=== PATIENT | male | born 1960 | race African-American/Black ===

== ENCOUNTER 2016-12-24 16:38 | Observation (INO) ==
[2016-12-24] MEDS ORDERED: ASPIRIN PO STA (17:02)
[2016-12-24] MEDS ORDERED: LABETALOL IV ONE ×2 (17:02→17:43)
[2016-12-24 17:14] LABS: MANUAL DIFF NEEDED? NO
[2016-12-24 17:15] LABS: BASO% 0.5 % (0.0-0.8); EOS# 0.03 X1000 (0.0-0.7); EOS% 0.4 % (0.0-10.0); HEMATOCRIT 40.5 % (42.0-52.0); IMM GRAN# 0.01 X1000 (0.0-0.04); IMM GRAN% 0.1 % (0.0-0.5); LYMPH% 12.7 % (20.5-51.1); MCH 32.9 PG (27-31); MCHC 34.6 g/dL (33-37); MCV 95.3 FL (81-99); MONO# 0.51 X1000 (0.11-0.59); MONO% 6.5 % (1.7-9.3); MPV 12.3 FL (7.4-10.4); NEUT% 79.8 % (42.2-75.2); PLT 224 X1000 (130-400); RBC 4.25 XMIL (4.7-6.1)
[2016-12-24 17:36] LABS: INR 0.99 (0.86-1.15); PROTIME 13.4 Seconds (12.1-15.5); PTT PL 29.3 Seconds (22.6-43.9)
[2016-12-24 17:40] LABS: AGAP 21; ALBUMIN 5.1 g/dL (3.5-5.0); ALKALINE PHOSPHATASE 95 U/L (32-122); BUN 13 mg/dL (8-22); CALCIUM 9.1 mg/dL (8.8-10.2); CHLORIDE 99 mmol/L (98-107); COSMO 278; GOT 24 U/L (10-34); GPT 11 U/L (10-44); MAGNESIUM 1.8 mg/dL (1.5-2.7); SODIUM 138 mmol/L (136-145); TCO2 19 mmol/L (25-35); TOTAL PROTEIN 7.7 g/dL (6.3-8.3)
[2016-12-24] MEDS ORDERED: LABETALOL ONE (17:44)
[2016-12-24 17:48] LABS: CK PROFILE 239 U/L (24-204)
--- NOTE | 2016-12-24 18:10 | PROVIDER DOCUMENTATION ---
This chart was entered by Nj Espinal Scribe, acting as scribe for Nj Hartley MD. HPI-General Adult - General Source: patient - History of Present Illness -Gen Adult Nature of Presenting Problems: 56 yo M presents to the ER with complaint of "seeing stars" and a dull throbbing pain in his L shoulder while mowing his grass, states the pain lasted 30-40 mins. Pt states he was here 1 week ago for fainting spells. Also complains of SOB and headache, but denies fever, NVD, and abdominal pain. Location of Pain/Injury: reports: upper extremity (L shoulder) Pain Radiation: reports: no radiation Quality of Pain: reports: dull, throbbing Severity: reports: mild Onset/Duration: reports: just prior to arrival Timing: reports: improving Associated Symptoms: reports: dizziness, weakness, other (shoulder pain) <Nj Hartley - Last Filed: 12/24/16 18:06> - General Source: patient <RodoEduardo GouldXin - Last Filed: 12/24/16 19:27> - General Chief Complaint: Chest Pain Stated Complaint: CHEST PAIN Time Seen by Provider: 12/24/16 16:52 Allergies/Adverse Reactions: Patient Allergies Allergy/AdvReac Type Severity Reaction Status Date / Time No Known Allergies Allergy Verified 04/22/15 18:19 Home Medications: Home Medication List Medication Instructions Recorded Confirmed Last Taken Type Carisoprodol [Soma] 250 mg PO TID 07/11/14 04/22/15 04/21/15 History Hydrocodone/Acetaminophen [[place] 1 each PO TID 07/11/14 04/22/15 04/21/15 History 10-325 Tablet] Clonazepam [Klonopin] 1 mg PO BID PRN PRN 03/28/15 04/22/15 04/21/15 History Lisinopril/Hydrochlorothiazide 1 each PO DAILY 03/28/15 04/22/15 04/21/15 History [Lisinopril-Hctz 20-12.5 mg Tab] Review of Systems - Adult - REVIEW OF SYSTEMS - ADULT Constitutional: denies: chills, fever Cardiovascular: denies: chest pain, palpitations Respiratory: denies: cough Gastrointestinal: denies: abdominal pain, diarrhea, nausea, vomiting Musculoskeletal: denies: back pain, neck pain Neurological: reports: see HPI, other ("seeing stars") All Other Systems: Reviewed and Negative <Nj Hartley - Last Filed: 12/24/16 18:06> - REVIEW OF SYSTEMS - ADULT Constitutional: denies: chills, fever <Eduardo Koehler - Last Filed: 12/24/16 19:27> Past History - Adult - PAST MEDICAL HISTORY-ADULT Review of Records: reports: Old Records Reviewed, Nursing Assessment Review, Medications Reviewed Major Childhood Illnesses: reports: denies history Cardiovascular: reports: HTN Respiratory: reports: denies history Gastrointestinal: reports: denies history Obstetrical/Gynecological: reports: denies history Genitourinary: reports: denies history Musculoskeletal: reports: chronic pain (lumbar) Neurological: reports: headaches/migraines Endocrine/Immune: reports: denies history Other Conditions: reports: denies history - PRIOR SURGERIES/PROCEDURES Surgical/Procedure History: reports: none - PRIOR HOSPITALIZATIONS Prior Hospitalizations: reports: none - IMMUNIZATION STATUS Childhood Immunizations: See Nurse Assessment Flu Vaccine: See Nurse Assessment - FAMILY HISTORY Family History: CVA/TIA, HTN <Nj Hartley - Last Filed: 12/24/16 18:06> - PAST MEDICAL HISTORY-ADULT Review of Records: reports: Old Records Reviewed, Nursing Assessment Review, Medications Reviewed, Social history reviewed & non-contributory. <Eduardo Koehler - Last Filed: 12/24/16 19:27> Physical Exam-General - PHYSICAL EXAM-ADULT Initial Vital Signs Reviewed: Yes - CONSTITUTIONAL General Appearance: appears well, alert, no apparent distress - RESPIRATORY Respiratory: lungs clear, normal breath sounds - GASTROINTESTINAL (ABDOMEN) Abdominal Exam: normal bowel sounds, soft, tenderness (slight tenderness to R side) - MUSCULOSKELETAL Extremity: normal range of motion, normal gait - SKIN Integumentary: normal color, normal turgor, warm/dry - NEUROLOGIC Neurologic: other (rehabilitation program manager II-XII intact) <Nj Hartley - Last Filed: 12/24/16 18:06> - PHYSICAL EXAM-ADULT Initial Vital Signs Reviewed: Yes - CONSTITUTIONAL General Appearance: appears well, alert, no apparent distress <Eduardo Koehler - Last Filed: 12/24/16 19:27> Progress - PLAN OF CARE/RESULTS Progress/Plan/Lab Results: Vital Signs - 8 hr 12/24/16 16:47 Temperature 97.4 F L Pulse Rate 120 H Respiratory Rate 20 Blood Pressure 175/141 O2 Sat by Pulse Oximetry 97 Result Diagrams: 12/24/16 16:50 12/24/16 16:50 - CHANGE OF SHIFT REPORT (ED Provider) Report Given and Care Transferred to:: [facility] Time of Transfer: 18:07 Items Pending: Labs <Nj Hartley - Last Filed: 12/24/16 18:06> - PLAN OF CARE/RESULTS Progress/Plan/Lab Results: Vital Signs - 8 hr 12/24/16 16:47 12/24/16 17:17 12/24/16 17:48 Temperature 97.4 F L Pulse Rate 120 H 88 80 Respiratory Rate 20 18 18 Blood Pressure 175/141 172/125 183/127 O2 Sat by Pulse Oximetry 97 99 99 Laboratory Results - last 24 hr 12/24/16 12/24/16 12/24/16 16:50 16:50 16:50 WBC RBC Hgb Hct MCV MCH MCHC RDW Std Deviation Plt Count MPV Immature Gran % (Auto) Neut % (Auto) Lymph % (Auto) [place] % (Auto) Eos % (Auto) Baso % (Auto) Immature Gran # (Auto) Neut # (Auto) Lymph # (Auto) [place] # (Auto) Eos # (Auto) Baso # (Auto) PT INR APTT (Factor Assay) D-Dimer Sodium 138 Potassium 4.0 Chloride 99 Carbon Dioxide 19 L Anion Gap 21 BUN 13 Creatinine 1.2 Estimated GFR/1.73 m2 > 60 BUN/Creatinine Ratio 11 Glucose 146 H Calculated Osmolality 278 Calcium 9.1 Magnesium 1.8 Total Bilirubin 0.80 AST 24 ALT 11 Alkaline Phosphatase 95 Creatine Kinase 239 H Creatine Kinase Index 1.0 CK-MB (CK-2) 2.31 Troponin T < 0.010 Mrq-I-Roxtipiobbs Pept 811 H Total Protein 7.7 Albumin 5.1 H Globulin 3.0 Albumin/Globulin Ratio 2.0 12/24/16 12/24/16 16:50 16:50 WBC 7.85 RBC 4.25 L Hgb 14.0 Hct 40.5 L MCV 95.3 MCH 32.9 H MCHC 34.6 RDW Std Deviation 11.9 Plt Count 224 MPV 12.3 H Immature Gran % (Auto) 0.1 Neut % (Auto) 79.8 H Lymph % (Auto) 12.7 L [place] % (Auto) 6.5 Eos % (Auto) 0.4 Baso % (Auto) 0.5 Immature Gran # (Auto) 0.01 Neut # (Auto) 6.26 Lymph # (Auto) 1.00 L [place] # (Auto) 0.51 Eos # (Auto) 0.03 Baso # (Auto) 0.04 PT 13.4 INR 0.99 APTT (Factor Assay) 29.3 D-Dimer < 0.22 L Sodium Potassium Chloride Carbon Dioxide Anion Gap BUN Creatinine Estimated GFR/1.73 m2 BUN/Creatinine Ratio Glucose Calculated Osmolality Calcium Magnesium Total Bilirubin AST ALT Alkaline Phosphatase Creatine Kinase Creatine Kinase Index CK-MB (CK-2) Troponin T [id number] Pept Total Protein Albumin Globulin Albumin/Globulin Ratio Orders Category Date Time Status Cardiac Monitoring DIRECTED Care 12/24/16 17:02 Active Saline Loc NOW Care 12/24/16 17:02 Active CHEST-2 VIEWS [RAD] Stat Exams 12/24/16 17:02 Taken CBC WITH ELECTRONIC DIFF [HEME] Stat Lab 12/24/16 16:50 Completed CK PROFILE [SP CHEM] Stat Lab 12/24/16 16:50 Completed CK PROFILE [SP CHEM] Stat Lab 12/24/16 18:40 Received COMPREHENSIVE METABOLIC PANEL [CHEM] Stat Lab 12/24/16 16:50 Completed D-DIMER PL [COAG] Stat Lab 12/24/16 16:50 Completed MAGNESIUM [CHEM] Stat Lab 12/24/16 16:50 Completed PRO B-NATRIURETIC PEPTIDE Stat Lab 12/24/16 16:50 Completed [address]IME WITH INR PL [COAG] Stat Lab 12/24/16 16:[address] [COAG] Stat Lab 12/24/16 16:50 Completed TROPONIN T Stat Lab 12/24/16 16:50 Completed TROPONIN T Stat Lab 12/24/16 18:40 Received Aspirin Med 12/24/16 17:02 Discontinued 325 mg PO STAT STA Labetalol Med 12/24/16 17:02 Discontinued 20 mg IV NOW ONE Labetalol Med 12/24/16 17:44 Discontinued 40 mg .ROUTE .STK-MED ONE Labetalol Med 12/24/16 17:43 Discontinued 40 mg IV NOW ONE Morphine Med 12/24/16 18:51 Discontinued 4 mg IV NOW ONE Nitroglycerin Med 12/24/16 18:51 Discontinued 1 inch TOP NOW ONE Nitroglycerin Sl [Nitroglycerin] Med 12/24/16 18:51 Discontinued 0.4 mg SL NOW ONE Ondansetron [Zofran] Med 12/24/16 18:51 Discontinued 4 mg IV NOW ONE EKG [EKG] Stat Ther 12/24/16 17:02 Draft EKG [EKG] Stat Ther 12/24/16 18:33 Ordered Result Diagrams: 12/24/16 16:50 12/24/16 16:50 - XRAY 1 XRAY Study: Chest Impression: Normal <Eduardo Koehler - Last Filed: 12/24/16 19:27> Departure <Nj Hartley - Last Filed: 12/24/16 18:06> - Departure Time of Disposition Decision: 19:24 Certified Medical Emergency: Emergent - Critical Care Note This patient required my direct & personal management of CC.: Yes <Eduardo Koehler - Last Filed: 12/24/16 19:27> - Departure DIAGNOSIS: Accelerated hypertension Chest pain Qualifiers: Chest pain type: unspecified Qualified Code(s): R07.9 - Chest pain, unspecified Disposition: ADMITTED INPATIENT 09 Condition: Fair Referrals and Follow-Ups: Johnie Pacheco MD [Primary Care Provider] - This chart was documented by the indicated scribe, (Nj Espinal Scribe) and accurately reflects the services I performed and decisions made by , Nj Hartley MD, as attested by the provider's signature.
--- NOTE | 2016-12-24 18:15 | EKG Report ---
Test Performed on : 12/24/2016 6:12:46 PM Test Reason : CP Blood Pressure : / mmHG Vent. Rate : 070 BPM Atrial Rate : 070 BPM P-R Int : 166 ms QRS Dur : 088 ms QT Int : 396 ms P-R-T Axes : 065 069 058 degrees QTc Int : 427 ms Normal sinus rhythm. Voltage criteria for left ventricular hypertrophy Abnormal ECG When compared with ECG of 13-DEC-2016 17:07, No significant change was found Unconfirmed Result
[2016-12-24 18:18] LABS: CK-MB 2.31 ng/mL (0.0-5.0)
[2016-12-24] MEDS ORDERED: NITROGLYCERIN TOP ONE (18:51)
[2016-12-24] MEDS ORDERED: MORPHINE IV ONE (18:51)
[2016-12-24] MEDS ORDERED: NITROGLYCERIN SL ONE (18:51)
[2016-12-24] MEDS ORDERED: ZOFRAN IV ONE (18:51)
--- NOTE | 2016-12-24 19:19 | EKG Report ---
Test Performed on : 12/24/2016 7:16:06 PM Test Reason : cp Blood Pressure : / mmHG Vent. Rate : 069 BPM Atrial Rate : 069 BPM P-R Int : 146 ms QRS Dur : 084 ms QT Int : 394 ms P-R-T Axes : 000 093 133 degrees QTc Int : 422 ms Normal sinus rhythm. Rightward axis Voltage criteria for left ventricular hypertrophy Nonspecific T wave abnormality Abnormal ECG When compared with ECG of 24-DEC-2016 18:12, (Unconfirmed) No significant change was found Unconfirmed Result
[2016-12-24] MEDS ORDERED: APRESOLINE IV ONE (19:23)
[2016-12-25] MEDS: TYLENOL PO PRN ×2 (03:37→10:52)
--- NOTE | 2016-12-25 07:50 | Diag Imaging Result Doc PS360 ---
CHEST-2 VIEWS - 12/24/2016 INDICATION: CP TECHNIQUE: COMPARISON: 04/22/2015 FINDINGS: The lungs are normally expanded and clear. Heart size and mediastinal contours are normal. No pneumothorax or pleural effusion. There are stable calcified granulomas in the inferior right hilum. IMPRESSION: No acute disease. Electronically signed by Sathish Mena 12/25/2016 7:47 AM
[2016-12-25] MEDS ORDERED: KLONOPIN PO PRN (09:37)
[2016-12-25] MEDS ORDERED: NORCO-10 PO PRN (09:37)
[2016-12-25] MEDS ORDERED: PRINIVIL PO SCH (09:45)
[2016-12-25] MEDS ORDERED: CATAPRES PO SCH (09:45)
--- NOTE | 2016-12-25 10:19 | HISTORY AND PHYSICAL ---
PRIMARY CARE PHYSICIAN: Dr. Johnie Pacheco. CHIEF COMPLAINT: "Seeing stars" and left-sided chest pain while mowing his grass yesterday. HISTORY OF PRESENTING ILLNESS: This is a 56-year-old, -[place] male, who presents to [facility] ER with complaints of "seeing stars" and having some left- sided chest pain that radiated up into his left shoulder that began while he was outside mowing his grass yesterday. He states he had some shortness of breath also. He states that he has "fainting spells" frequently. He states his last one was on Mother's Day on . It is unclear how much of a workup he has had in the past for this. His blood pressure on arrival to the emergency room yesterday was 175/141. Laboratory data was fairly unremarkable. His cardiac enzymes x2 sets were negative. His EKG showed normal sinus rhythm at 69. Chest x-ray showed no acute disease. In the emergency room, he was given hydralazine 25 mg IV x1, labetalol 20 mg IV x1 and 40 mg IV x1. He was given nitroglycerin sublingually x1 and 1-inch paste topically to his chest wall. This a.m., his blood pressure is improved and is now down to 120/ 84. He states he is no longer having any chest pain, but he was admitted for further evaluation and treatment. PAST MEDICAL HISTORY: Hypertension and osteoarthritis. PAST SURGICAL HISTORY: None. FAMILY HISTORY: His mom passed of an WI, and he has diabetes in his family. SOCIAL HISTORY: He currently lives with his girl friend. Smokes about a half a pack of cigarettes a day. He drinks beer on the weekends only and smokes approximately 2 joints of marijuana daily. He denied any other illicit drugs. ALLERGIES: He has no known drug allergies. HOME MEDICATIONS: 1. Klonopin 1 mg p.o. b.i.d., p.r.n. 2. Clonidine 0.1 mg 1 p.o. daily. 3. [place] 10, one p.o. b.i.d. p.r.n. 4. Lisinopril 20 mg p.o. daily. LABORATORY DATA: White blood cell count of 7.85, hemoglobin 14, hematocrit 40.5 , platelets 224,000. PT and INR of 13.4 and 0.99 with a D-dimer of less than 0.22. Sodium of 138, potassium 4, chloride 99, CO2 of 19. BUN of 13, creatinine 1.2, glucose 146. Magnesium 1.8. Cardiac enzymes x2 sets were negative. ProBNP of 811. Chest x-ray showed no acute disease. EKG showed normal sinus rhythm at 69. REVIEW OF SYSTEMS: He denied any fever, chills. He denied any blurred vision. He was positive for some dizziness, left-sided chest pain radiating into his left shoulder, shortness of breath. He denied any cough, constipation, diarrhea, abdominal pain, burning or hurting with urination. PHYSICAL EXAMINATION: VITAL SIGNS: On arrival, he had a temperature of 97.4 degrees, pulse of 120, respirations 20, blood pressure 175/141. Currently, he has had a temperature of 98.2 degrees, pulse 61, respirations 18, blood pressure 120/84, saturating 97% on room air. GENERAL: This is a 56-year-old, -[place] male, who is lying in the bed and answers questions appropriately. HEENT: Normocephalic and atraumatic. Pupils are equal, round, and reactive to light. The extraocular movements are intact. The oropharynx and nares are clear. NECK: Supple. LUNGS: Clear to auscultation bilaterally with equal lung expansion and chest wall movement. HEART: Regular rate and rhythm. No murmurs, rubs, or gallops. ABDOMEN: Soft, nontender, nondistended. Bowel sounds are present x4 quadrants. EXTREMITIES: No clubbing, cyanosis, or edema. NEUROLOGICAL: The cranial nerves 2-12 are grossly intact. ASSESSMENT: 1. Accelerated hypertension. 2. Chest pain. 3. Tobacco abuse. 4. Marijuana abuse. PLAN: He was admitted to the medical unit at [facility], placed on telemetry, healthy heart diet. We will continue his home medications. We will check an echocardiogram today and carotid Doppler. If these are all within normal limits, we can most likely set him up for an outpatient stress test. Dictated by NANCY Chavira for Ivan Zaidi MD cc: NANCY Chavira MD Moses Awoniyi, MD pt examined, agree with above, will pursue lexiscan and follow APHEIDIT MTDD
--- NOTE | 2016-12-25 10:59 | EKG Report ---
Test Performed on : 12/25/2016 10:44:05 AM Test Reason : cp Blood Pressure : / mmHG Vent. Rate : 066 BPM Atrial Rate : 066 BPM P-R Int : 158 ms QRS Dur : 086 ms QT Int : 390 ms P-R-T Axes : 067 058 069 degrees QTc Int : 408 ms Sinus rhythm. with premature atrial complexes. with aberrant conduction. Voltage criteria for left ventricular hypertrophy ST elevation, consider early repolarization, pericarditis, or injury Nonspecific ST and T wave abnormality Abnormal ECG When compared with ECG of 24-DEC-2016 19:16, aberrant conduction. is now present Confirmed by Gerard Rai MD ([id number]) on 12/30/2016 10:01:15 PM
--- NOTE | 2016-12-25 13:56 | GRADED EXERCISE REPORT ---
DATE: 12/25/2016 This is the EKG portion of initially a GXT treadmill then transitioned to a Lexiscan. Briefly, the patient had eaten this morning and had received some caffeine so we proceeded with a GXT treadmill. Unfortunately even after 10 minutes he had not reached his predicted heart rate. His max heart rate was 74 predicted and he no longer continue to exercise. That EKG portion did not show any significant ST changes nor did he have chest pain. He was converted to a Lexiscan which he did undergo testing. He did develop chest pain and pressure. His initial EKG showed ST depressions II, III, AF with occasional PVCs. He did develop chest pressure during that procedure. He did have a greater than a millimeter increase in V3 and V4 during the course but it looked like J-point elevation. The V4 lead looked a little bit more concerning for ischemic but I think overall was likely more J-point elevation than true ischemic changes and again felt to be electrically negative but clinically positive. Nuclear myocardial perfusion will be dictated separately. cc: Ivan Zaidi MD
[2016-12-25] MEDS ORDERED: LEXISCAN ONE (15:28)
[2016-12-25 16:46] VITALS: BP 142/73
--- NOTE | 2016-12-25 17:07 | Diag Imaging Result Document ---
PROCEDURE NAME: MYOCARDIAL PERF SCAN, STR/REST - 12/25/2016 STUDY: Rest/stress Lexiscan myocardial perfusion study. INDICATION: Chest pain. REQUESTING PHYSICIAN: Ivan Zaidi MD - Hospitalist Service, [facility], [place] DESCRIPTION: The patient came into the nuclear lab at [facility], [place] on 12/25/2016 and received a rest injection of technetium 99 sestamibi 11.8 mCi. Multiple tomographic views of the cardiac structures were obtained at rest. Subsequently, the patient underwent infusion of Lexiscan per protocol, 0.4 mg. At peak infusion he was injected with technetium 99 sestamibi 33.9 mCi. Multiple tomographic views of the cardiac structures were obtained following the completion of the protocol. The following is a summary of the myocardial perfusion portion of the study. Poststress tomographic views of the left ventricle showed normal homogeneous distribution of the radiotracer throughout the entire left ventricular myocardium. There was no evidence of any postexercise defect. The rest images showed normal perfusion. The polar plots revealed the same. There was no evidence of neither inducible ischemia nor myocardial scar. Gated SPECT shows normal left ventricular systolic function. The ejection fraction is estimated at 61% with normal ventricular volumes and no wall motion abnormality. The lung/heart ratio is normal. TID is normal. SUMMARY: In summary, this study shows: 1. Normal poststress myocardial perfusion scan. There is no scintigraphic evidence of pharmacologically-induced myocardial ischemia utilizing a Lexiscan protocol. 2. Normal left ventricular systolic function with ejection fraction estimated at 61% with normal ventricular volumes and no wall motion abnormality. This study represents a low risk for ischemic events. Clinical correlation is recommended. cc: MD Ivan Parker MD
--- NOTE | 2016-12-26 10:20 | Extremity Venous Study ---
Carotid Ultrasound - 12/25/2016 INDICATION: cp,syncope TECHNIQUE: Bilateral carotid artery Doppler ultrasound COMPARISON: None FINDINGS: On the right side, there is some mild plaque buildup at the carotid bulb. No elevated velocity to suggest significant stenosis. Maximum velocity is 76 cm/s in the mid internal carotid artery. There is significant tortuosity of the distal internal carotid artery. On the left side, there is some mild plaque buildup in the carotid bulb and proximal internal carotid artery. Maximum velocity is 90 cm/s at the carotid bulb. This indicates no significant stenosis. Once again, there is severe tortuosity of the distal internal carotid artery. The vertebral arteries are patent with forward flow. IMPRESSION: 1. Mild atherosclerotic disease of the carotid bulbs but no significant stenosis. Estimated stenosis is 0%. 2. Very tortuous internal carotid arteries bilaterally. Electronically signed by Sathish Mena 12/26/2016 10:18 AM
--- NOTE | 2016-12-29 15:12 | ECHO REPORT ---
ORDER DATE: 12/25/2016 PROCEDURE: 2D echocardiogram. ECHOCARDIOGRAPHIC MEASUREMENTS: 1. Interventricular septum 1.8. Left ventricular posterior wall 1.8. Diastolic diameter 4.2. Left atrium 3.7. Aorta 3.4. Normal left ventricular cavity size. Severe left ventricular hypertrophy. Estimated ejection fraction of 70%. Aortic valve leaflets are trileaflet. There is left atrial enlargement. Mitral valve was normal. Tricuspid valve was normal. 2. There is mild mitral regurgitation. Mild tricuspid regurgitation. Peak velocity across the tricuspid valve was 3.5 m/sec. Pulmonary artery systolic pressure of 57 mmHg. 3. There is no aortic stenosis or regurgitation. 4. There is increased interventricular gradient. Mild increase across the left ventricular outflow tract. 5. There is no pericardial effusion or obvious intracardiac mass or thrombus seen. There is pulmonary arterial hypertension. cc: MD Joceline Chamorro CRNP
== END 2016-12-25 18:15 | disposition home or self-care (01) ==
LOC: P.ED 16:38 → P.MEDSURG 16:38 → SUATTDRO 19:52
PROVIDERS: ATTEND Internal Medicine

== ENCOUNTER 2019-10-19 12:54 | Observation (INO) ==
--- NOTE | 2019-10-19 12:33 | Diag Imaging Result Doc PS360 ---
CHEST-2 VIEWS - 10/19/2019 INDICATION: HBP, SERG, COPD, DJD, RENAL INSUFFICIENCY COMPARISON: 06/05/2019 FINDINGS: The lungs are normally expanded and clear. Heart size and mediastinal contours are normal. No pneumothorax or pleural effusion. IMPRESSION: Negative exam. Electronically signed by Sathish Mena 10/19/2019 12:30 PM
[2019-10-19 12:49] LABS: BASO# 0.02 X1000 (0.0-0.2); BASO% 0.3 % (0.0-0.8); EOS# 0.32 X1000 (0.0-0.7); EOS% 5.3 % (0.0-10.0); HEMATOCRIT 39.9 % (42.0-52.0); HEMOGLOBIN 13.1 g/dL (14.0-18.0); LYMPH# 1.49 X1000 (1.2-3.4); LYMPH% 24.5 % (20.5-51.1); MCH 31.9 PG (27-31); MCHC 32.8 g/dL (33-37); MCV 97.1 FL (81-99); MONO# 0.58 X1000 (0.11-0.59); MONO% 9.6 % (1.7-9.3); MPV 10.7 FL (7.4-10.4); NEUT# 3.66 X1000 (1.4-6.5); NEUT% 60.3 % (42.2-75.2); PLT 256 X1000 (130-400); RBC 4.11 XMIL (4.7-6.1); RDW 11.7 % (11.5-14.5); WBC 6.07 X1000 (4.8-10.8)
[2019-10-19 13:16] LABS: AGAP 12; ALBUMIN 4.1 g/dL (3.5-5.0); ALKALINE PHOSPHATASE 91 U/L (32-122); BUN 13 mg/dL (8-22); CALCIUM 8.5 mg/dL (8.8-10.2); CHLORIDE 103 mmol/L (98-107); COSMO 283; ESTIMATED GFR > 60; GLUCOSE 120 mg/dL (70-104); GOT 14 U/L (10-34); GPT 7 U/L (10-44); POTASSIUM 3.8 mmol/L (3.5-5.1); SODIUM 141 mmol/L (136-145); TCO2 25 mmol/L (25-35); TOTAL PROTEIN 6.5 g/dL (6.3-8.3)
[2019-10-19 14:11] LABS: BASO# 0.03 X1000 (0.0-0.2); BASO% 0.5 % (0.0-0.8); EOS# 0.34 X1000 (0.0-0.7); HEMATOCRIT 39.1 % (42.0-52.0); HEMOGLOBIN 12.9 g/dL (14.0-18.0); IMM GRAN# 0.01 X1000 (0.0-0.04); IMM GRAN% 0.2 % (0.0-0.5); LYMPH# 1.65 X1000 (1.2-3.4); LYMPH% 29.2 % (20.5-51.1); MCH 31.9 PG (27-31); MCV 96.8 FL (81-99); MONO# 0.56 X1000 (0.11-0.59); MONO% 9.9 % (1.7-9.3); NEUT# 3.07 X1000 (1.4-6.5); NEUT% 54.2 % (42.2-75.2); PLT 254 X1000 (130-400); RBC 4.04 XMIL (4.7-6.1); RDW 11.8 % (11.5-14.5); WBC 5.66 X1000 (4.8-10.8)
[2019-10-19 14:24] LABS: INFLUENZA A NEGATIVE (NEGATIVE); INFLUENZA B NEGATIVE (NEGATIVE)
--- NOTE | 2019-10-19 14:35 | EKG Report ---
Test Performed on : 10/19/2019 12:22:24 PM Test Reason : op Blood Pressure : / mmHG Vent. Rate : 074 BPM Atrial Rate : 074 BPM P-R Int : 156 ms QRS Dur : 086 ms QT Int : 374 ms P-R-T Axes : 077 067 -74 degrees QTc Int : 415 ms Sinus rhythm. with marked sinus arrhythmia. Voltage criteria for left ventricular hypertrophy T wave abnormality, consider inferior ischemia Abnormal ECG When compared with ECG of 05-JUN-2019 12:20, T wave inversion now evident in Inferior leads Unconfirmed Result
[2019-10-19 14:40] LABS: AGAP 12; ALBUMIN 4.2 g/dL (3.5-5.0); ALKALINE PHOSPHATASE 94 U/L (32-122); BUN 13 mg/dL (8-22); CALCIUM 8.9 mg/dL (8.8-10.2); CHLORIDE 104 mmol/L (98-107); COSMO 283; ESTIMATED GFR > 60; GLUCOSE 90 mg/dL (70-104); GOT 14 U/L (10-34); GPT 7 U/L (10-44); MAGNESIUM 2.1 mg/dL (1.5-2.7); POTASSIUM 4.1 mmol/L (3.5-5.1); SODIUM 142 mmol/L (136-145); TCO2 27 mmol/L (25-35); TOTAL PROTEIN 6.3 g/dL (6.3-8.3)
--- NOTE | 2019-10-19 14:43 | Diag Imaging Result Doc PS360 ---
EXAM: CT HEAD W/O CONTRAST INDICATION: syncope TECHNIQUE: This exam was performed using automated exposure control, adjustment of mA or kV according to patient size, and/or use of iterative reconstruction technique. COMPARISON: 06/05/2019 FINDINGS: There is no definite acute infarct given the limited sensitivity of CT versus MRI. There is no discrete intracranial mass, mass effect, or intracranial hemorrhage. There is a small chronic defect involving the lamina papyracea on the right. There is moderate chronic pansinusitis. It is less severe than the previous study, however. IMPRESSION: 1.No evidence of acute intracranial pathology. 2.Chronic sinusitis. Electronically signed by Chetan Torres 10/19/2019 2:41 PM
--- NOTE | 2019-10-19 15:12 | PROVIDER DOCUMENTATION ---
This chart was entered by Stormy Frias Scribe, acting as scribe for Dewayne Lara MD. HPI-General Adult - General Chief Complaint: B/P Problems Stated Complaint: HIGH BLOOD PRESSURE Time Seen by Provider: 10/19/19 13:00 Source: patient Allergies/Adverse Reactions: Patient Allergies Allergy/AdvReac Type Severity Reaction Status Date / Time No Known Allergies Allergy Verified 10/19/19 14:12 Home Medications: Home Medication List Medication Instructions Recorded Confirmed Last Taken Type Amlodipine [Norvasc] 5 mg PO DAILY #15 tab 06/05/19 10/19/19 Unknown Rx Hydrocodone/Acetaminophen 1 tab PO TID 10/19/19 10/19/19 Unknown History [Hydrocodone-Acetamin 10-325 mg] - History of Present Illness -Gen Adult Nature of Presenting Problems: 59yobm presents to ED cc syncope that lasts about 3 mins, without warning and dizziness upon coming to for last 3 weeks. Pt was at Dr. Russell/[facility] [employer] [facility] in ED for an annual check up and was sitting in lab chair when he passed out, but didn't hit floor and denies any injury. He also had elevated blood pressure at Dr. Russell office and in ED his b/p is 195/117. He denies CP/F/C/CHAVEZ/SOB. He has hx of HTN and is on Norvasc but hasn't had meds today due to blood work. Pt is A&Ox3, feels a little dizzy but in no apparent distress upon exam. Location of Pain/Injury: reports: none Pain Radiation: reports: no radiation Severity: reports: mild Onset/Duration: reports: other (3 weeks) Timing: reports: intermittent Context/Activities at Onset: reports: light activity Modifying Factors: improves with: nothing Similar Symptoms Previously?: Yes Recently seen or treated by another doctor?: Yes (was at Dr. Russell/[facility] [employer] [facility]) Review of Systems - Adult - REVIEW OF SYSTEMS - ADULT Constitutional: reports: see HPI. denies: chills, fever, fatique Eyes: reports: no symptoms reported Ears, Nose, Mouth & Throat: reports: no symptoms reported Cardiovascular: reports: see HPI, other (elevated b/p). denies: chest pain Respiratory: reports: see HPI. denies: shortness of breath Gastrointestinal: reports: no symptoms reported Genitourinary: reports: no symptoms reported Musculoskeletal: reports: no symptoms reported Integumentary: reports: no symptoms reported Neurological: reports: see HPI, dizziness/vertigo, syncope. denies: headache/migraines Psychiatric: reports: no symptoms reported Endocrine: reports: no symptoms reported Hematologic/Lymphatic: reports: no symptoms reported Allergic/Immunologic: reports: no symptoms reported All Other Systems: Reviewed and Negative Past History - Adult - PAST MEDICAL HISTORY-ADULT Review of Records: reports: Old Records Reviewed, Nursing Assessment Review, Medications Reviewed, Social history reviewed & non-contributory. Major Childhood Illnesses: reports: denies history Cardiovascular: reports: arrhythmia (?), HTN. denies: cardiac disease, A-Fib, angina Respiratory: reports: denies history Gastrointestinal: reports: denies history Obstetrical/Gynecological: reports: denies history Genitourinary: reports: denies history Musculoskeletal: reports: chronic pain (lumbar) Neurological: reports: headaches/migraines Endocrine/Immune: reports: denies history Other Conditions: reports: denies history - PRIOR SURGERIES/PROCEDURES Surgical/Procedure History: reports: none - PRIOR HOSPITALIZATIONS Prior Hospitalizations: reports: none - IMMUNIZATION STATUS Childhood Immunizations: See Nurse Assessment Flu Vaccine: See Nurse Assessment - FAMILY HISTORY Family History: CVA/TIA, HTN - SOCIAL HISTORY Smoking: denies Physical Exam-General - PHYSICAL EXAM-ADULT Initial Vital Signs Reviewed: Yes - CONSTITUTIONAL General Appearance: appears well, alert, no apparent distress. negative: anxious, combative - EYES Eyes: PERRL/EOMI, pink conjunctivae. negative: photophobia - HEAD, EARS, NOSE, MOUTH & THROAT HENMT: normocephalic/atraumatic, moist mucous membranes. negative: angioedema - NECK Neck: non-tender, full range of motion, supple, normal inspection. negative: C- spine tenderness - RESPIRATORY Respiratory: chest non-tender, lungs clear, normal breath sounds, no pleuratic chest pain, no respiratory distress, no accessory muscle use. negative: rhonchi, wheezing - CARDIOVASCULAR Cardiovascular: normal peripheral pulses, regular rate, rhythm, no edema, no murmur. negative: bradycardia, tachycardia - GASTROINTESTINAL (ABDOMEN) Abdominal Exam: normal bowel sounds, non tender, soft. negative: guarding, rebound - LYMPHATIC Lymphatic: no adenopathy. negative: enlargement - MUSCULOSKELETAL Extremity: normal range of motion, normal inspection, no pedal edema, no calf tenderness, normal capillary refill. negative: deformity, swelling - SKIN Integumentary: normal color, normal turgor, warm/dry. negative: diaphoresis, jaundice, rash - PSYCHIATRIC Psych/Mental Status: normal mood/affect, oriented x 3. negative: anxious, disheveled Progress - PLAN OF CARE/RESULTS Progress/Plan/Lab Results: Vital Signs - 8 hr 10/19/19 13:00 Temperature 98 F Pulse Rate 65 Respiratory Rate 18 Blood Pressure 180/105 O2 Sat by Pulse Oximetry 99 Orders Category Date Time Status Cardiac Monitoring DIRECTED Care 10/19/19 13:32 Active Saline Loc NOW Care 10/19/19 13:32 Active CHEST-2 VIEWS [RAD] Stat Exams 10/19/19 13:[address] HEAD W/O CONTRAST [CT] Stat Exams 10/19/19 13:35 Ordered CBC WITH ELECTRONIC DIFF [HEME] Stat Lab 10/19/19 13:34 Uncollected COMPREHENSIVE METABOLIC PANEL [CHEM] Stat Lab 10/19/19 13:34 Uncollected D-DIMER [COAG] Stat Lab 10/19/19 13:34 Ordered FREE T4 Stat Lab 10/19/19 13:[address] Stat Lab 10/19/19 13:34 Uncollected MAGNESIUM [CHEM] Stat Lab 10/19/19 13:34 Uncollected PRO B-NATRIURETIC PEPTIDE Stat Lab 10/19/19 13:34 Uncollected TROPONIN T HIGH SENSITIVITY Stat Lab 10/19/19 13:34 Uncollected URINALYSIS W/POSS RFLX CULT [URINALYSIS] Stat Lab 10/19/19 13:34 Uncollected URINE DRUG SCREEN PL Stat Lab 10/19/19 13:35 Uncollected Result Diagrams: 10/19/19 13:58 10/19/19 13:58 - EKG 1 Time of EKG reading by physician:: 12:50 EKG Read and Signed by:: Dewayne Lara EKG Interpretation (*Must complete 3 of following elements*): Abnormal (T wave abnormality, consider inferior ischemia) Rate: 74 Rhythm: Sinus w/marked sinus arrythmia Bellamy: normal QRS: LVH [place] Interval: normal - XRAY 1 XRAY: Bilateral XRAY Study: Chest Impression: See EMR Report (IMPRESSION: Negative exam. Electronically signed by Sathish Mena 10/19/2019 12:30PM) - CT/MRI 1 CT Study: Head Impression: See EMR Report (IMPRESSION: 1.No evidence of acute intracranial pathology. 2.Chronic sinusitis. Electronically signed by Chetan Torres 10/19/2019 2:41 PM) - CONSULTS/PCP/HOSPITALIST Notification #1 *Consult/PCP/Hospitalist*: Dr. Fan Time Discussed: 15:08 Departure - Departure Date of Disposition Decision: 10/19/19 Time of Disposition Decision: 14:50 DIAGNOSIS: Sinus arrhythmia Syncope Qualifiers: Syncope type: unspecified Qualified Code(s): R55 - Syncope and collapse Disposition: ADMITTED INPATIENT 09 Certified Medical Emergency: Emergent Condition: Stable Referrals and Follow-Ups: Johnie Pacheco MD [Primary Care Provider] - Discharge Education: Steps to Quit Smoking, [id number], Health Risks of Smoking - Critical Care Note This patient required my direct & personal management of CC.: No Attestation - Physician/ BRENDAN Attestation Patient care was provided by Advanced Practice Provider:: No The physician spent face to face time with patient:: Yes Advanced Practice Provider documentation review:: Supervising physician onsite and consulted in the evaluation and care of this patient. The physician did have a face to face encounter with the patient. This chart was documented by the indicated scribe, (Stormy Frias Scribe) and accurately reflects the services I performed and decisions made by me, Dewayne Lara MD, as attested by the provider's signature.
[2019-10-19 15:18] LABS: URINE SOURCE CLEAN CATCH
[2019-10-19 15:26] LABS: BILIRUBIN URINE NEGATIVE (NEGATIVE); BLOOD URINE NEGATIVE (NEGATIVE); COLOR YELLOW; GLUCOSE URINE NEGATIVE (NEGATIVE); KETONE URINE NEGATIVE (NEGATIVE); LEUKOCYTES URINE NEGATIVE (NEGATIVE); NITRITE URINE NEGATIVE (NEGATIVE); PH URINE 6.5; PROTEIN URINE TRACE mg/dL (NEGATIVE); SP GRAVITY URINE 1.023; TURBIDITY URINE CLEAR (CLEAR); UROBILINOGEN URINE 2 mg/dL (NORMAL)
[2019-10-19 15:29] LABS: URINE CASTS NONE SEEN; URINE CRYSTALS NONE SEEN; URINE SMALL ROUND CELLS NONE SEEN; URINE YEAST NONE SEEN
[2019-10-19 15:30] LABS: UR AMPHETAMINES QUAL NONE DETECTED (NONE DETECT); UR BARBITUATES QUAL NONE DETECTED (NONE DETECT); UR BENZODIAZEPIN QUAL NONE DETECTED (NONE DETECT); UR CANNABINOIDS QUAL NONE DETECTED (NONE DETECT); UR COCAINE QUAL PRESUMPTIVE POSITIVE (NONE DETECT); UR EPITHELIAL CELLS <10 /HPF (<10); UR METHADONE QUAL NONE DETECTED (NONE DETECT); UR METHAMPHETAMINE QUAL NONE DETECTED (NONE DETECT); UR OPIATES QUAL NONE DETECTED (NONE DETECT); UR OXYCODONE QUAL NONE DETECTED (NONE DETECT); UR PCP QUAL NONE DETECTED (NONE DETECT); UR PROPOXYPHENE QUAL NONE DETECTED (NONE DETECT); UR TCA QUAL NONE DETECTED (NONE DETECT); URINE BACTERIA NEGATIVE /HPF; URINE RBC <10 /HPF (<10); URINE WBC <10 /HPF (<10)
[2019-10-19] MEDS ORDERED: TYLENOL PO ONE (15:41)
[2019-10-19] MEDS ORDERED: TYLENOL PO PRN (23:58)
[2019-10-20] MEDS ORDERED: NORCO-10 PO PRN
--- NOTE | 2019-10-20 04:13 | HISTORY AND PHYSICAL ---
CHIEF COMPLAINT: Hypertension. HISTORY OF PRESENT ILLNESS: The patient is a 59-year-old male who presents to the hospital with a syncopal episode. States it happens without warning. He has dizziness. States it has been happening off and on for several weeks. Notes that he went to Dr. Pacheco's office and he passed out in the office. Did not hit the floor. He again apparently passed out when he was at [place] attempting to go to Radiology. ALLERGIES: No known drug allergies. MEDICATIONS: Norvasc 5, hydrocodone. REVIEW OF SYSTEMS: Denies any chest pain, palpitations. Denies any fevers or chills. Denies dysuria, urinary frequency, urgency, hesitancy, polyuria or polydipsia. PAST MEDICAL HISTORY: Hypertension, history of arrhythmia per the patient, chronic lumbar pain. FAMILY HISTORY: Positive for hypertension and CVA. SOCIAL HISTORY: Patient denies smoking, denies illicit substance use currently. PHYSICAL EXAMINATION: VITAL SIGNS: Reviewed. Temperature 98 degrees, pulse 65, respiratory rate 18, BP 180/105, saturating 99% on room air. GENERAL: Patient is awake, pleasant, no distress lying in the bed. HEENT: Normocephalic. NECK: Supple. CARDIOVASCULAR: Regular rate. CHEST: Clear. ABDOMEN: Soft. EXTREMITIES: Moves all extremities. ASSESSMENT: 1. Syncope. 2. Urine drug screen positive for cocaine. 3. Hypertension with poor control. PLAN: We are going to admit the patient to the hospital, place him on telemetry, oxygen, attempt to control his blood pressures. We will again discuss with him the positive urine drug screen which certainly could be contributing to his syncope and we will follow. cc: Candido Fan MD
[2019-10-20 05:58] LABS: HEMATOCRIT 40.4 % (42.0-52.0); HEMOGLOBIN 12.9 g/dL (14.0-18.0); MCH 31.3 PG (27-31); MCHC 31.9 g/dL (33-37); MCV 98.1 FL (81-99); MPV 10.9 FL (7.4-10.4); RBC 4.12 XMIL (4.7-6.1); RDW 12.1 % (11.5-14.5); WBC 5.07 X1000 (4.8-10.8)
[2019-10-20 06:43] LABS: AGAP 11; ALBUMIN 3.9 g/dL (3.5-5.0); ALKALINE PHOSPHATASE 90 U/L (32-122); BUN 17 mg/dL (8-22); CALCIUM 8.6 mg/dL (8.8-10.2); CHLORIDE 104 mmol/L (98-107); CK PROFILE 123 U/L (24-204); COSMO 282; CREATININE 1.2 mg/dL (0.7-1.2); ESTIMATED GFR > 60; GLUCOSE 86 mg/dL (70-104); GOT 11 U/L (10-34); GPT 6 U/L (10-44); MAGNESIUM 2.1 mg/dL (1.5-2.7); POTASSIUM 4.2 mmol/L (3.5-5.1); SODIUM 141 mmol/L (136-145); TCO2 26 mmol/L (25-35); TOTAL PROTEIN 5.9 g/dL (6.3-8.3)
[2019-10-20] MEDS ORDERED: NORCO-10 PO SCH (09:00)
[2019-10-20] MEDS ORDERED: NORVASC PO SCH (09:00)
--- NOTE | 2019-10-20 10:12 | Vascular Study Report ---
EXAM: Carotid Ultrasound HISTORY: syncope TECHNIQUE: Carotid Doppler ultrasound COMPARISON: None. FINDINGS: Right: There is intimal thickening in the common carotid artery. No occlusion or stenosis. Minimal plaque in the bulb. Peak systolic velocity in the internal carotid artery 64 cm/s. The ICA/CCA ratio 0.94. Antegrade vertebral flow. Left: There is intimal thickening in the common carotid artery. No occlusion or stenosis. No definite plaque in the bulb. Peak systolic velocity in the internal carotid artery is 80 cm/s. The ICA/CCA ratio 0.75. Antegrade vertebral flow. IMPRESSION: 1.No occlusion or stenosis within either common carotid artery 2.Stenosis in the proximal right internal carotid artery of less than 40% 3.No stenosis in the left internal carotid artery Electronically signed by Joaquin Greene 10/20/2019 10:09 AM
--- NOTE | 2019-10-20 12:04 | DISCHARGE SUMMARY ---
ADMISSION DATE: 10/19/2019 DISCHARGE DATE: 10/20/2019 PRIMARY CARE PROVIDERS: Johnie Pacheco MD. CHIEF COMPLAINT: Hypertension. HISTORY OF PRESENT ILLNESS: Mr. Drew is a 59-year-old gentleman, who presented to the hospital with a syncopal episode that happened without warning. He did report some dizziness happening on and off for the last several weeks. He went to Dr. Nagy's office, passed out in the office. He did not hit the floor and apparently passed out in [place] attempting to go to Radiology. He does carry a past medical history of hypertension, history of arrhythmia per the patient, and chronic lumbar pain. He was admitted to the hospital for syncope rule out. Urine drug screen was positive for cocaine that he reports he put on the tooth to numb the pain. Hypertension with poor control. He was placed on telemetry. Supplemental O2. Medications for his blood pressure. Carotid Dopplers showed no occlusion or stenosis within either common carotid artery. Stenosis of the right internal carotid artery less than 40%. Head CT showed no evidence of intracranial pathology. Chronic sinusitis. Currently pending his echocardiogram. The patient will be discharged home. VITAL SIGNS: Temperature is 97.7 degrees, heart rate 62, respirations 14, blood pressure 158/83, O2 is 99% on room air. DISCHARGE DIAGNOSES: 1. Syncope. 2. Urine drug screen positive for cocaine. 3. Hypertension with poor control. DISCHARGE DIET: Healthy heart. DISCHARGE MEDICATIONS: 1. [place] 10/325 one tab p.o. t.i.d. 2. Norvasc 5 mg p.o. daily. FOLLOWUP: Mr. Drew will be discharged home after his echocardiogram. He has been educated on smoking cessation, as well as the means to quit, as well as cocaine abstinence. He is to follow up with Dr. Pacheco within the week. He can return to the ED or call 911 for any worsening of symptoms. Dictated by NANCY Gupta for Candido Fan MD cc: MD Johnie Barnye MD
[2019-10-20 13:45] VITALS: BP 133/81
--- NOTE | 2019-10-20 16:46 | ECHO REPORT ---
ORDER DATE: 10/20/2019 INTERPRETING PHYSICIAN: Dr. Cortez REQUESTING PHYSICIAN: CLINICAL INDICATIONS: A 59-year-old male with syncope. M-MODE MEASUREMENTS: Right ventricle: cm. Left ventricle end diastole: 4.4 cm. Left ventricle end systole: 3.0 cm. Posterior wall: 1.6 cm. Interventricular septum: 1.7 cm. Left atrium: 4.3 cm. Aortic root: 3.2 cm. SUMMARY OF 2-DIMENSIONAL IMAGIN. The left ventricular function is normal. Ejection fraction is 63%. There is no wall motion abnormality. There is moderate to severe concentric LVH. 2. The aortic valve is normal. Color flow mapping is unremarkable. 3. Mitral valve shows minimal degree of regurgitation. 4. Pulse wave Doppler of mitral inflow shows mild reversal of the E and the A ratio. 5. Tissue Doppler of septal and lateral mitral annulus averages 4 cm. 6. There is impaired left ventricular relaxation. 7. Pulmonic valve looks normal. Color flow mapping is unremarkable. 8. Tricuspid valve shows mild degree of regurgitation. 9. Pulmonary pressure estimated at 22 to 27 mmHg. 10.There is no pericardial effusion, mass or thrombus. 11.The left atrium appears to be mildly enlarged. Clinical correlation is recommended. cc: MD Candido Parker MD
--- NOTE | 2019-10-20 17:07 | DISCHARGE SUMMARY ---
ADMISSION DATE: 10/19/2019 DISCHARGE DATE: 10/20/2019 On discharge, patient is awake, alert, currently in no distress. He is able to ambulate without any difficulty. He notes his cocaine was positive only because a friend told him that would help with his toothache and states that he put a little bit on his tooth. Regardless, he states he has been having syncopal episodes prior to the use of cocaine. Did discuss with him the importance of not doing that in the future. We will discharge him home. He will follow up as an outpatient with primary care provider cc: Candido Fan MD MTDD
== END 2019-10-20 15:07 | disposition home or self-care (01) ==
LOC: P.ED 12:54 → P.MEDSURG 12:54
PROVIDERS: ATTEND Family Medicine